=== PATIENT | female | born 1945 | race Caucasian/White ===

== ENCOUNTER 2017-04-19 20:24 | Inpatient (IN) | payer MEDICARE, MEDICAID ==
[~2017-04-19] VITALS: Ht 167.6 cm; Wt 49.4 kg
[~2017-04-19 20:24] MED LIST: DEX4T PO; LEVO500T21 PO; MEGE40SU2 PO; [UNRECOGNIZED DRUG - CODE] PO
[2017-04-19] MEDS ORDERED: SODIUM CHLORIDE 0.9% 1,000 ML IVB ONE (20:44)
[2017-04-19 21:19] LABS: Basophils # (auto) 0 uL; CONDITION Y; Eosinophils # (auto) 0.1 uL; Hematocrit 46.5 % (36.0-46.0); Hemoglobin 15.2 g/dL (12.2-16.2); Lymphocytes # (auto) 0.7 uL; Lymphocytes % (auto) 6.2 % (10.0-50.0); Mean Corpuscular Hemoglobin 27.3 pg (28.0-32.0); Mean Corpuscular Hgb Conc. 32.8 g/dL (32.0-36.0); Mean Corpuscular Volume 83.4 fL (80.0-100.0); Mean Platelet Volume 8.9 fL (7.4-10.4); Monocytes # (auto) 1.2 uL; Monocytes % (auto) 10.3 % (0.0-12.0); Neutrophils # (auto) 9.7 uL; Neutrophils % (auto) 82.5 % (37.0-80.0); Platelet Count (auto) 219 10^3/uL (140-450); Red Cell Distribution Width 14.4 % (11.6-16.0); White Blood Cell 11.7 10^3/uL (4.4-10.8)
[2017-04-19 21:34] LABS: INR 1.07 (0.9-1.15); Partial Thromboplastin Time 21.8 sec (22.64-33.71); Prothrombin Time 11.7 sec (9.37-12.3)
[2017-04-19 21:37] LABS: Albumin 2.8 g/dL (3.4-5.0); Anion Gap 10 (5-15); Aspartate Aminotransferase 36 U/L (15-37); BUN/Creatinine Ratio 30.4; Blood Urea Nitrogen 21 mg/dL (7-18); Calcium 8.2 mg/dL (8.5-10.1); Carbon Dioxide 23 mmol/L (21-32); Chloride 109 mmol/L (98-107); GFR African American 108 mL/min; GFR Non-African American 89 mL/min; Glucose 99 mg/dL (74-106); Magnesium 2.2 mg/dL (1.6-2.6); Potassium 3.7 mmol/L (3.5-5.1); Sodium 142 mmol/L (136-145)
[2017-04-19 21:42] LABS: Alkaline Phosphatase 111 U/L (45-117); Bilirubin, Total 0.5 mg/dL (0.2-1.0); Total Protein 7.2 g/dL (6.4-8.2)
[2017-04-19] MEDS ORDERED: DEXA4TAB PO (21:44)
[2017-04-19] MEDS ORDERED: LEVO-28 PO (21:45)
[2017-04-19 23:16] LABS: Urine Bilirubin Negative (Negative); Urine Blood Negative /uL (Negative); Urine Color Yellow (Yellow); Urine Glucose Normal (Normal); Urine Granular Cast FEW /lpf (0); Urine Hyaline Cast FEW /lpf (0 - 2); Urine Ketone Negative (Negative); Urine Mucus FEW (None Seen); Urine Nitrite Negative (Negative); Urine RBC <1 /hpf (0 - 4); Urine Squamous Epithelial Cell FEW /hpf (<5); Urine Urobilinogen Normal (Negative); Urine pH 6.5 (5.0-8.0)
[2017-04-20] MEDS ORDERED: DOCUSATE SOD 100 MG CAP PO PRN
[2017-04-20] MEDS ORDERED: ONDANSETRON HCL 4 MG/2 ML VIAL IV PRN
[2017-04-20] MEDS ORDERED: NITROGLYCERIN 0.4 MG SL TAB SL PRN
[2017-04-20] MEDS ORDERED: HYDROcodone-ACET 5/325MG TAB PO PRN
[2017-04-20] MEDS ORDERED: ACETAMINOPHEN 325 MG TAB PO PRN
[2017-04-20] MEDS ORDERED: cefTRIAXone 1GM/50ML D5W 50 ML IV ONE
[2017-04-20] MEDS ORDERED: TEMAZEPAM 15 MG CAP PO PRN
[2017-04-20] MEDS ORDERED: MORPHINE SULFATE 4 MG/ML SYRG IV PRN
[2017-04-20] MEDS: SODIUM CHLORIDE 0.9% 1,000 ML IV SCH ×2 (00:04→16:26)
[2017-04-20 09:00] VITALS: BP 102/48
[2017-04-20 09:38] LABS: Basophils # (auto) 0 uL; Basophils % (auto) 0.3 % (0.0-2.0); CONDITION Y; Eosinophils # (auto) 0.1 uL; Eosinophils % (auto) 0.8 % (0.0-7.0); Hematocrit 40.8 % (36.0-46.0); Hemoglobin 13.6 g/dL (12.2-16.2); Lymphocytes # (auto) 0.9 uL; Lymphocytes % (auto) 8.8 % (10.0-50.0); Mean Corpuscular Hemoglobin 27.7 pg (28.0-32.0); Mean Corpuscular Hgb Conc. 33.2 g/dL (32.0-36.0); Mean Corpuscular Volume 83.5 fL (80.0-100.0); Mean Platelet Volume 8.9 fL (7.4-10.4); Monocytes % (auto) 10.8 % (0.0-12.0); Neutrophils # (auto) 7.7 uL; Neutrophils % (auto) 79.3 % (37.0-80.0); Platelet Count (auto) 188 10^3/uL (140-450); Red Cell Distribution Width 14.5 % (11.6-16.0); White Blood Cell 9.7 10^3/uL (4.4-10.8)
[2017-04-20] MEDS ORDERED: FAMOTIDINE 20 MG TAB PO SCH (10:00)
[2017-04-20 10:01] LABS: Albumin 2.4 g/dL (3.4-5.0); BUN/Creatinine Ratio 27.8; Bilirubin, Total 0.4 mg/dL (0.2-1.0); Calcium 8.1 mg/dL (8.5-10.1); Potassium 3.6 mmol/L (3.5-5.1)
[2017-04-20] MEDS: ENOXAPARIN SOD 30 MG/0.3 ML SYRINGE SC SCH (10:24)
[2017-04-20] MEDS: cefTRIAXone 1GM/50ML D5W 50 ML IV SCH (10:25)
[2017-04-20] MEDS: MEGESTROL ACET 400MG/10ML ORAL SUSP PO SCH (10:25)
[2017-04-20] MEDS: ASPirin 81 mg TAB PO SCH (10:25)
[2017-04-20 13:01] VITALS: BP 95/53
[2017-04-20 17:00] VITALS: BP 95/57
[2017-04-20] MEDS: PANTOPRAZOLE 40 MG TAB PO SCH (18:29)
[2017-04-20 21:30] VITALS: BP 117/56
[2017-04-20] MEDS: DEXAMETHASONE SOD PHOS 4 MG/1ML SDV INJ IV SCH (23:06)
[2017-04-21 05:00] VITALS: BP 131/76
[2017-04-21] MEDS: DEXAMETHASONE SOD PHOS 4 MG/1ML SDV INJ IV SCH ×3 (06:23→22:21)
[2017-04-21 08:00] VITALS: BP 131/57
[2017-04-21 09:00] VITALS: BP 131/57
[2017-04-21] MEDS: SODIUM CHLORIDE 0.9% 1,000 ML IV SCH (09:06)
[2017-04-21] MEDS: ASPirin 81 mg TAB PO SCH (10:00)
[2017-04-21] MEDS: PANTOPRAZOLE 40 MG TAB PO SCH (10:00)
[2017-04-21] MEDS: MEGESTROL ACET 400MG/10ML ORAL SUSP PO SCH (10:00)
[2017-04-21] MEDS: cefTRIAXone 1GM/50ML D5W 50 ML IV SCH (10:49)
[2017-04-21] MEDS: ENOXAPARIN SOD 30 MG/0.3 ML SYRINGE SC SCH (10:51)
[2017-04-21 13:07] VITALS: BP 116/71
[2017-04-21 16:30] VITALS: BP 109/54
[2017-04-21 22:00] VITALS: BP 109/54
[2017-04-22] MEDS: SODIUM CHLORIDE 0.9% 1,000 ML IV SCH ×2 (03:00→22:02)
[2017-04-22] MEDS: DEXAMETHASONE SOD PHOS 4 MG/1ML SDV INJ IV SCH ×3 (05:50→22:02)
[2017-04-22 09:00] VITALS: BP 114/55
[2017-04-22] MEDS: ENOXAPARIN SOD 30 MG/0.3 ML SYRINGE SC SCH (11:09)
[2017-04-22] MEDS: MEGESTROL ACET 400MG/10ML ORAL SUSP PO SCH (11:09)
[2017-04-22] MEDS: PANTOPRAZOLE 40 MG TAB PO SCH (11:10)
[2017-04-22] MEDS: ASPirin 81 mg TAB PO SCH (11:10)
[2017-04-22] MEDS ORDERED: CYANOCOBALAMIN (B-12) 1000 MCG/1 ML VIAL SUBCUT ONE (12:00)
[2017-04-22 14:42] VITALS: BP 101/61
[2017-04-22 17:10] VITALS: BP 129/77
[2017-04-22 20:00] VITALS: BP 120/53
[2017-04-22 22:00] VITALS: BP 120/53
[2017-04-23 05:00] VITALS: BP 93/65
[2017-04-23] MEDS: DEXAMETHASONE SOD PHOS 4 MG/1ML SDV INJ IV SCH (06:32)
[2017-04-23 08:00] VITALS: BP 104/50
[2017-04-23 08:54] VITALS: BP 104/50
[2017-04-23] MEDS: ENOXAPARIN SOD 30 MG/0.3 ML SYRINGE SC SCH (09:35)
[2017-04-23] MEDS: PANTOPRAZOLE 40 MG TAB PO SCH (09:35)
[2017-04-23] MEDS: ASPirin 81 mg TAB PO SCH (09:35)
[2017-04-23] MEDS: MEGESTROL ACET 400MG/10ML ORAL SUSP PO SCH (09:35)
[2017-04-23] MEDS: SODIUM CHLORIDE 0.9% 1,000 ML IV SCH (11:06)
== END 2017-04-23 11:40 | disposition hospice, inpatient (51) | DRG 180 ==
LOC: EDBD 20:24 → ER 20:25 → TELE 20:26 → TELE-EAST 04-20 08:30
PROVIDERS: ADMIT Internal Medicine; ATTEND Internal Medicine
DX: C78.00 Secondary malignant neoplasm of unspecified lung (principal); N17.0 Acute kidney failure with tubular necrosis; G93.40 Encephalopathy, unspecified; C79.31 Secondary malignant neoplasm of brain; R65.10 Systemic inflammatory response syndrome (SIRS) of non-infectious origin without acute organ dysfunction; E44.1 Mild protein-calorie malnutrition; Z68.1 Body mass index [BMI] 19.9 or less, adult; C78.7 Secondary malignant neoplasm of liver and intrahepatic bile duct; C79.51 Secondary malignant neoplasm of bone; J91.0 Malignant pleural effusion; R55 Syncope and collapse; D72.829 Elevated white blood cell count, unspecified; I95.9 Hypotension, unspecified; Z85.3 Personal history of malignant neoplasm of breast
CPT/HCPCS: 36415; 51702; 70450; 71010; 80053; 81001; 82962; 83735; 84484; 85025; 85610; 85730; 87040; 87081; 93005; 93886; 95819; 96361; 96365; J0696; J1100